=== PATIENT | female | born 1950 | race Caucasian/White ===

== ENCOUNTER 2018-04-04 19:50 | Inpatient (IN) | payer MEDICAID, OTHER ==
[~2018-04-04] VITALS: Ht 157.5 cm; Wt 46.8 kg
--- NOTE | 2018-04-04 20:07 | NUR ---
PT'S SON CALLED, HEIDI, CALLED AND CAN BE REACHED AT [phone]. PLEASE CALL WITH UPDATES
--- NOTE | 2018-04-04 20:12 | NUR ---
[id number] FROM [facility] C/O R WRIST PAIN/SWELLING/BRUSING SINCE LAST NIGHT S/P GLF. PER RA DENIES ANY HEAD TRAUMA/-LOC. HAS DIFFICULTY SUPPORTING WRIST. PT IS AOX2, VSS, RR EVEN AND UNLABORED. PAIN LEVEL 8/10. NO ACUTE DISTRESS NOTED. DENIES SOB, DIZZINESS, WEAKNESS, N/V. SKIN INTACT WITH SOME REDNESS IN GROIN AREA R/T ADULT DIAPER. READY FOR EVAL.
[2018-04-04] MEDS ORDERED: ACETAMINOPHEN 325 MG TABLET PO ONE (20:30)
[2018-04-04] MEDS ORDERED: ACETAMINOPHEN 325 MG TABLET ONE (20:39)
[2018-04-04 21:57] LABS: BASOPHILS % (AUTO) 0.3 % (0.0-2.0); EOSINOPHILS % (AUTO) 1.5 % (0.0-6.0); HEMATOCRIT 40 % (33-45); HEMOGLOBIN 13.2 g/dL (11.5-14.8); LYMPHOCYTES # (AUTO) 1.2 /CMM (0.8-4.8); LYMPHOCYTES % (AUTO) 15.3 % (20.0-44.0); MEAN CORPUSCULAR HGB CONC 33 g/dl (31.0-36.0); MEAN CORPUSCULAR VOLUME 96 fL (82-100); MONOCYTES # (AUTO) 0.7 /CMM (0.1-1.30); MONOCYTES % (AUTO) 9.1 % (2.0-12.0); NEUTROPHILS # (AUTO) 5.8 /CMM (1.8-8.9); NEUTROPHILS % (AUTO) 73.8 % (43.0-81.0); PLATELET COUNT (AUTO) 206 /CMM (150-450); RED BLOOD CELL COUNT(AUTO) 4.16 MIL/uL (4.0-5.2); WHITE BLOOD COUNT (AUTO) 7.9 K/uL (4.3-11.0)
--- NOTE | 2018-04-04 22:01 | NUR ---
Patient is resting comfortably in bed with eyes closed. Easily aroused. VSS
[2018-04-04 22:07] LABS: CALCIUM, SERUM 9.6 mg/dL (8.5-10.1); CREATININE 0.6 mg/dL (0.6-1.3); POTASSIUM 3.7 mmol/L (3.5-5.1)
[2018-04-04 22:13] LABS: ALBUMIN 3.7 g/dL (3.4-5.0); BILIRUBIN,DIRECT 0.1 mg/dL (0.0-0.2); BILIRUBIN,TOTAL 0.6 mg/dL (0.2-1.0); TOTAL PROTEIN, SERUM 6.7 g/dL (6.4-8.2)
[2018-04-04] MEDS ORDERED: TRAMADOL HCL 50 MG TABLET PO ONE (22:30)
[2018-04-04] MEDS ORDERED: TRAMADOL HCL 50 MG TABLET ONE (22:39)
--- NOTE | 2018-04-04 23:00 | NUR ---
report given to Rosio MORA for continuation of care.
--- NOTE | 2018-04-04 23:05 | NUR ---
[facility]
[2018-04-04 23:15] VITALS: BP 114/65
[2018-04-05] MEDS ORDERED: HYDROCODONE/APAP 5/325MG 1 EACH TABLET PO PRN
[2018-04-05] MEDS ORDERED: ACETAMINOPHEN 325 MG TABLET PO PRN
[2018-04-05] MEDS ORDERED: MAGNESIUM HYDROXIDE 30 ML UDC PO PRN
[2018-04-05] MEDS ORDERED: Z GUARD REMEDY 2 OZ OINT TP PRN
[2018-04-05] MEDS ORDERED: ONDANSETRON HCL/PF 4 MG/2 ML VIAL IVP PRN
[2018-04-05] MEDS ORDERED: ZOLPIDEM TARTRATE 5 MG TABLET PO PRN
[2018-04-05] MEDS ORDERED: CARB-93 PO (00:18)
[2018-04-05] MEDS ORDERED: ACYC400T PO (00:18)
[2018-04-05] MEDS ORDERED: LEVO25TA7 PO (00:18)
[2018-04-05] MEDS ORDERED: ROPI0.5T2 PO (00:18)
[2018-04-05] MEDS ORDERED: DULO60CA45 PO (00:18)
--- NOTE | 2018-04-05 00:30 | NUR ---
RESOURCE RN NOTES: PLACED ON ISOLATION PRECAUTION FOR POSSIBLE SCABIES
--- NOTE | 2018-04-05 00:36 | NUR ---
RESOURCE RN NOTES: ADMISSION DOCUMENTATION COMPLETED USING THE PAPER WORKS FROM [facility] NO VACCINATION HISTORY/DOCUMENTATION INCLUDED IN PAPER WORKS. UNABLE TO OBTAIN PERTINENT INFORMATION FROM PATIENT PT IS CONFUSED. HOME MED LIST TRANSCRIBED. ASSIGNED RN TO NOTIFY MD FOR MED RECON, ALSO MADE AWARE TO F/U WITH PATIENT'S VACCINATION HISTORY. ASSIGNED RN TO DO THE INITIAL PHYSICAL ASSESSMENT.
--- NOTE | 2018-04-05 01:15 | NUR ---
made cade velasco aware of patient possibily having scabies and to make rounds and check.
[2018-04-05] MEDS ORDERED: PERMETHRIN 5% CRM 60 GM TUBE TP ONE (02:00)
--- NOTE | 2018-04-05 02:00 | NUR ---
CREAM FOR SSCABIES APPLIED ORDERED TO STAY ON THE PATIENT 12 HOURS, WILL LET THE NEXT SHIFT AWARE
[2018-04-05] MEDS: IV NS 0.9% 1,000 ML IV PRN ×2 (02:32→19:44)
--- NOTE | 2018-04-05 05:39 | NUR ---
CLOSING NOTES: MS. REJI GAMEZ. RIGHT ARM WITH BIAS WRAP AND IN A SLING FROM ER. NOTED RED CLUSTERED RAISED RASH OVER HER BODY, PRINTING FILM STRIPPER CALATAN AWARE AND PERMETHRIN CRM ORDERED AND APPLIED TO ENTIRE BODY ORDERED. WILL INFORM DAY SHIFT TO WASH CLEAN AT 2 PM. INCONTINENT OF URINE. STG 2 ON COCCYX WOUND NURSE CONSULT ORDERED. RIGHT ARM ELEVATED ON PILLOWS TO KEEP THE RIGHT HAND FROM SWELLING. FINGERS ARE MOVEABLE AND CAPILLARY REFILL < 3 SECONDS. RIGHT HAND WARM TO TOUCH. SMILING AND COOPERATIVE. IV FOR HYDRATION STARTED. I CALLED [facility] TO SEE IF SHE HAD HER FLU SHOT OR PNA BUT WAS TOLD TO CALL BACK IN THE AM THE NUMBER IS [phone]. NEEDS MAX ASSIST WHEN BEING REPOSITIONED
[2018-04-05 07:11] LABS: BASOPHILS % (AUTO) 0.4 % (0.0-2.0); EOSINOPHILS % (AUTO) 3.6 % (0.0-6.0); HEMATOCRIT 40 % (33-45); LYMPHOCYTES # (AUTO) 1.2 /CMM (0.8-4.8); LYMPHOCYTES % (AUTO) 23.7 % (20.0-44.0); MEAN CORPUSCULAR HGB CONC 33 g/dl (31.0-36.0); MEAN CORPUSCULAR VOLUME 98 fL (82-100); MONOCYTES # (AUTO) 0.6 /CMM (0.1-1.30); NEUTROPHILS # (AUTO) 3.2 /CMM (1.8-8.9); NEUTROPHILS % (AUTO) 61.3 % (43.0-81.0); PLATELET COUNT (AUTO) 185 /CMM (150-450); RED BLOOD CELL COUNT(AUTO) 4.07 MIL/uL (4.0-5.2); WHITE BLOOD COUNT (AUTO) 5.2 K/uL (4.3-11.0)
[2018-04-05 07:19] LABS: CALCIUM, SERUM 8.9 mg/dL (8.5-10.1); CREATININE 0.5 mg/dL (0.6-1.3); MAGNESIUM 1.9 mg/dL (1.8-2.4); PHOSPHORUS 3.2 mg/dL (2.5-4.9); POTASSIUM 4.2 mmol/L (3.5-5.1)
[2018-04-05] MEDS ORDERED: MULT-24 PO (07:30)
[2018-04-05] MEDS ORDERED: RANI150T8 PO (07:30)
[2018-04-05] MEDS ORDERED: ALEN70TA6 PO (07:30)
[2018-04-05] MEDS ORDERED: VITA400C71 PO (07:30)
[2018-04-05] MEDS ORDERED: CALC500T52 PO (07:30)
[2018-04-05] MEDS ORDERED: ASCO500T9 PO (07:30)
[2018-04-05] MEDS ORDERED: DOCU-141 PO ×2 (07:30)
--- NOTE | 2018-04-05 07:30 | NUR ---
MS RN RECEIVED ON BED, AWAKE,W/ PERIODS OF CONFUSION, NOT IN ANY FORM OF DISTRESS, RESPIRATIONS EVEN AND UNLABORED,NO SOB NOTED, LUNGS ARE DIMINISHED, ABDOMEN SOFT,POSITIVE BOWEL SOUNDS,DENIES PAIN AT THIS ITME, ALL NEEDS ATTENDED.
[2018-04-05] MEDS ORDERED: ZINC220C8 PO (07:31)
--- NOTE | 2018-04-05 08:30 | NUR ---
MS RN BREAKFAST SERVED,TOLERATED WELL. WAITING FOR THE DOCTOR TO DO MED RECONCILIATION.
[2018-04-05 08:43] VITALS: BP 117/69
--- NOTE | 2018-04-05 10:00 | NUR ---
MS RN DUE MEDS GIVEN,TOLERATED WELL.
[2018-04-05] MEDS ORDERED: DOCUSATE SODIUM 100 MG CAPSULE PO PRN (11:00)
[2018-04-05 11:46] LABS: THYROID STIMULATING HORMONE 1.336 uIU/mL (0.358-3.74)
[2018-04-05] MEDS: ACYCLOVIR 200 MG CAPSULE PO SCH ×2 (13:45→17:25)
[2018-04-05] MEDS: VITAMIN E 400 UNIT CAPSULE PO SCH (13:46)
[2018-04-05] MEDS: CARBIDOPA/LEVODOPA 25/100 MG 1 UDTAB PO SCH ×3 (13:46→20:21)
[2018-04-05] MEDS: ropiniROLE 0.5 MG TABLET PO SCH ×2 (13:46→17:25)
[2018-04-05] MEDS: CALCIUM CARBONATE (1250) 500 MG TABLET PO SCH ×2 (13:46→17:25)
--- NOTE | 2018-04-05 14:30 | NUR ---
MS RN ELIMITE CREAM WASHED W/ BILL CLERK,ALL NEEDS ATTENDED, SON AT BEDSIDE.
[2018-04-05 16:15] VITALS: BP 99/62
--- NOTE | 2018-04-05 18:52 | NUR ---
MS RN ON BED, NO DISTRESS, ALL NEEDS ATTENDED.
--- NOTE | 2018-04-05 19:05 | NUR ---
RN MS OPENING NOTES RECEIVED PATIENT IN BED AWAKE ALERT AND ORIENTED X 1 NOTED CONFUSED , RESPIRATIONS EVEN AND UNLABORED WITH EQUAL RISE AND FALL OF CHEST, REMAINS COMFORTABLE, NO FACIAL GRIMACINF, GRUNTS OR MOANS PRESENT, PATIENT HAD RIGHT ARM SLING IN PLACE, IV SITE TO LEFT FA #20G INTACT AND PATENT, IVF RUNNING ORDERED. ON CONTACT PRECAUTIONS FOR SCABIES. FLUIDS, CLEANING AND REPOSITIONING OFFERED AND DONE, SAFETY PRECAUTIONS IN PLACE, LOW BED AND LOCKED, ALL NEEDS ATTENDED WILL CONTINUE TO MONITOR. REMAINS COMFORTABLE AT THIS TIME.
[2018-04-05 20:00] VITALS: BP_SYST 105; BP_SYST 108; BP_DIAS 53
[2018-04-05] MEDS: FAMOTIDINE (20 MG) 20 MG TABLET PO SCH (20:21)
[2018-04-05 21:21] VITALS: BP 108/53
--- NOTE | 2018-04-06 06:54 | NUR ---
RN MS CLOSING NOTES PATIENT IN BED AWAKE ALERT AND ORIENTED X 1 NOTED CONFUSED , RESPIRATIONS EVEN AND UNLABORED WITH EQUAL RISE AND FALL OF CHEST, REMAINS COMFORTABLE, NO FACIAL GRIMACING, GRUNTS OR MOANS PRESENT, PATIENT HAD RIGHT ARM SLING IN PLACE, IV SITE TO LEFT FA #20G INTACT AND PATENT, IVF RUNNING ORDERED. ON CONTACT PRECAUTIONS FOR SCABIES. FLUIDS, CLEANING AND REPOSITIONING OFFERED AND DONE, SAFETY PRECAUTIONS IN PLACE, LOW BED AND LOCKED, ALL NEEDS ATTENDED WILL CONTINUE TO MONITOR. REMAINS COMFORTABLE AT THIS TIME AND ENDORSE TO NEXT SHIFT.
[2018-04-06 07:23] LABS: CALCIUM, SERUM 8.8 mg/dL (8.5-10.1); CREATININE 0.5 mg/dL (0.6-1.3); POTASSIUM 3.8 mmol/L (3.5-5.1)
[2018-04-06 07:25] LABS: BASOPHILS % (AUTO) 0.4 % (0.0-2.0); HEMATOCRIT 39 % (33-45); HEMOGLOBIN 12.8 g/dL (11.5-14.8); LYMPHOCYTES # (AUTO) 0.9 /CMM (0.8-4.8); LYMPHOCYTES % (AUTO) 21.9 % (20.0-44.0); MEAN CORPUSCULAR HGB CONC 33 g/dl (31.0-36.0); MEAN CORPUSCULAR VOLUME 97 fL (82-100); MONOCYTES # (AUTO) 0.4 /CMM (0.1-1.30); NEUTROPHILS # (AUTO) 2.6 /CMM (1.8-8.9); NEUTROPHILS % (AUTO) 62.7 % (43.0-81.0); PLATELET COUNT (AUTO) 171 /CMM (150-450); WHITE BLOOD COUNT (AUTO) 4.1 K/uL (4.3-11.0)
[2018-04-06] MEDS ORDERED: LEVOTHYROXINE SODIUM 25 MCG TABLET PO SCH (07:30)
[2018-04-06 08:00] VITALS: BP 131/74
--- NOTE | 2018-04-06 08:00 | NUR ---
m/s program coordinator executive education: initial assessment received pt in bed awake, a/ox2. right sling in place with soft cast in place. no c/o pain or any discomfort. on isolation for scabies and maintained. instructed to call for assistance. will monitor.
[2018-04-06] MEDS ORDERED: ZINC SULFATE 220 MG CAPSULE PO SCH (09:00)
[2018-04-06] MEDS ORDERED: MULTIVITAMINS,THERAGRAN 1 UDTAB TABLET PO SCH (09:00)
[2018-04-06] MEDS ORDERED: ASCORBIC ACID 500 MG TABLET PO SCH (09:00)
[2018-04-06] MEDS ORDERED: DOCUSATE SODIUM 100 MG CAPSULE PO SCH (09:00)
[2018-04-06] MEDS ORDERED: DULOXETINE HCL 30 MG CAPSULE.DR PO SCH (09:00)
[2018-04-06] MEDS: FAMOTIDINE (20 MG) 20 MG TABLET PO SCH (09:18)
[2018-04-06] MEDS: CARBIDOPA/LEVODOPA 25/100 MG 1 UDTAB PO SCH ×2 (09:18→12:47)
[2018-04-06] MEDS: CALCIUM CARBONATE (1250) 500 MG TABLET PO SCH ×2 (09:18→12:48)
[2018-04-06] MEDS: ropiniROLE 0.5 MG TABLET PO SCH ×2 (09:18→12:48)
[2018-04-06] MEDS: VITAMIN E 400 UNIT CAPSULE PO SCH (09:20)
[2018-04-06] MEDS: IV NS 0.9% 1,000 ML IV PRN (09:31)
--- NOTE | 2018-04-06 09:42 | NUR ---
WOUND CARE CONSULT: PT PRESENTS WITH SACRAL SCARRING AND RASH TO BODY, PRESENT ON ADMISSION. PT NOT NOTED TO BE ITCHING AT THIS TIME. PER NURSING STAFF, PT WAS TREATED FOR SCABIES. RECOMMENDATIONS MADE FOR SKIN PROTECTION AND DISCUSSED WITH NURSING STAFF. PT ON JILL ISOFLEX LOW AIRLOSS BED. RT ARM SPLINT/ORTHO DRESSING IN PLACE. DEFER TO ORTHO FOR RT UPPER EXTREMITY. WILL SEE PRN. IN AGREEMENT WITH PLAN OF CARE.
[2018-04-06] MEDS: ACYCLOVIR 200 MG CAPSULE PO SCH (10:48)
[2018-04-06] MEDS ORDERED: HYDR-4354 PO (10:50)
--- NOTE | 2018-04-06 11:00 | NUR ---
m/s crystallography teacher: md visit seen and examined by dr. fisher (acnp) with order to d'c back to snf with discharge instructions <Okay to [facility] back to [facility] facility, Followup with orthopedic surgeon outpatient, Our orthopedist spoke to who fixed patient's right, forearm one year ago and he can see her in the office for followup, Continue home medications, Followup with primary provider and orthopedist within 3 days, >Wound location <SACRAL SCAR,POA> Instructions <PROTECT DAILY WITH MEPILEX AND OFFLOAD. keep sling at all times. order acknowledged. case management making arrangement.
--- NOTE | 2018-04-06 11:55 | NUR ---
m/s mechanical manufacturing engineer: jr lam (case management) called and informed me that pt is leaving at 1400 to go back assisted living. pt made aware, but unable to sign d'c papers due to cognitive impairment. will give d'c papers to [facility] assisted [facility]. place a call to neetu (son) [phone], but no answer, message left via voice mail.
--- NOTE | 2018-04-06 12:00 | NUR ---
m/s felt checker: notes per hospitalist (phillip), Scabies prophylaxis provided, no isolation is required for patient. carole (case management) notified assisted living and made aware.
--- NOTE | 2018-04-06 13:30 | NUR ---
m/s mulling machine operator: notes pt unable to sign all d'c papers due to cognitive impairment. 2 licensed staff signed all d'c papers. all belongings returned to pt. awaiting for ambulance. will continue to monitor.
--- NOTE | 2018-04-06 14:15 | NUR ---
m/s lime mixer tender: notes ambulance here and report given to one of the crew. h/l removed with tip intact with no swelling, no redness, and no bleeding noted. belongings and d'c papers surrendered to emt crew.
--- NOTE | 2018-04-06 14:30 | NUR ---
m/s deck scaler: discharged discharged back to [facility] (assisted living) in stable condition with all d'c papers and belongings via ambulance accompanied by 2 crew.
[2018-04-11] MEDS ORDERED: ALENDRONATE 70 MG TABLET PO SCH (11:00)
== END 2018-04-06 14:30 | disposition home health service (06) | DRG 342 ==
LOC: ER 19:55 → MED 22:49
PROVIDERS: ADMIT Nurse Practitioner Acute Care; ATTEND Nurse Practitioner Acute Care
DX: S52.501A Unspecified fracture of the lower end of right radius, initial encounter for closed fracture (principal); N17.9 Acute kidney failure, unspecified; G20 Parkinson's disease; F03.90 Unspecified dementia, unspecified severity, without behavioral disturbance, psychotic disturbance, mood disturbance, and anxiety; E44.1 Mild protein-calorie malnutrition; S52.601A Unspecified fracture of lower end of right ulna, initial encounter for closed fracture; W01.0XXA Fall on same level from slipping, tripping and stumbling without subsequent striking against object, initial encounter; Y92.099 Unspecified place in other non-institutional residence as the place of occurrence of the external cause; E03.9 Hypothyroidism, unspecified; Z68.1 Body mass index [BMI] 19.9 or less, adult; F32.9 Major depressive disorder, single episode, unspecified; B86 Scabies
CPT/HCPCS: 36415; 70450-TC; 71045-TC; 73090-TC; 73120-TC; 80048-TC; 80061-TC; 80076-TC; 83735-TC; 84100-TC; 84439-TC; 84443-TC; 84484-TC; 85025-TC; 85730-TC; 87081-TC; 93307-TC; G0378; J7030

== ENCOUNTER 2019-02-12 07:09 | Emergency (ER) | payer MEDICAID, OTHER ==
[~2019-02-12] VITALS: Ht 167.6 cm; Wt 58.5 kg
[~2019-02-12 07:09] MED LIST: ACYC400T PO; ALEN70TA6 PO; ASCO500T9 PO; CALC500T52 PO; CARB-93 PO; DOCU-141 PO; DULO60CA45 PO; HYDR-4354 PO; LEVO25TA7 PO; MULT-24 PO; RANI150T8 PO; ROPI0.5T2 PO; VITA400C71 PO; ZINC1CAP2 PO
--- NOTE | 2019-02-12 07:18 | NUR ---
[id number] FROM [facility] GL[facility] X 30MINS KALSOMINER, -LOC, LACERATION ON LT EYEBROW, TO ER BED 7, HOOKED TO MONITOR, CHANGED TO HOSP GOW, AWAITING MD DURÁN.
--- NOTE | 2019-02-12 07:34 | NUR ---
DR PANDEY AT BEDSIDE
[2019-02-12] MEDS ORDERED: ACETAMINOPHEN 325 MG TABLET ONE (07:46)
[2019-02-12] MEDS ORDERED: TDAP [DIPH/PERTUSSIS/TET] 0.5 ML VIAL IM ONE ×2 (07:47→08:00)
[2019-02-12] MEDS ORDERED: ACETAMINOPHEN 325 MG TABLET PO ONE (08:00)
--- NOTE | 2019-02-12 09:22 | NUR ---
PATIENT IN BED AWAKE, HOOKED TO MONITOR, VSS. KEPT WARM AND COMFORTABLE.
--- NOTE | 2019-02-12 11:26 | NUR ---
PATIENT IN BED ASLEEP, EASILY AROUSABLE BY VOICE. HOOKED TO MONITOR, VSS. KEPT WARM AND COMFORTABLE.
[2019-02-12] MEDS ORDERED: LIDOCAINE 1%-EPI 1:100,000 20 ML VIAL ONE ×2 (12:26→12:35)
[2019-02-12] MEDS ORDERED: LET SOLN TOPICAL 8 ML UDC TP ONE ×2 (12:27→12:30)
[2019-02-12] MEDS ORDERED: LIDOCAINE 1%-EPI 1:100,000 20 ML VIAL TP ONE (12:30)
--- NOTE | 2019-02-12 14:34 | NUR ---
report given to royal adam roe
--- NOTE | 2019-02-12 14:36 | NUR ---
CALLED TRANSPORT ETA [phone] IS PER RISHABH TRIP # [id number]
--- NOTE | 2019-02-12 16:28 | NUR ---
Patient is resting comfortably in bed with eyes closed. Easily aroused. VSS
--- NOTE | 2019-02-12 17:27 | NUR ---
REPORT GIVEN TO EMS. PT TRANSPORTED INSTABLE [facility]DITINO
[2019-02-12 17:38] VITALS: BP 128/81
== END 2019-02-12 17:38 ==
LOC: ER 07:13
DX: S02.32XA Fracture of orbital floor, left side, initial encounter for closed fracture (principal); S02.40DA Maxillary fracture, left side, initial encounter for closed fracture; S01.112A Laceration without foreign body of left eyelid and periocular area, initial encounter; G20 Parkinson's disease; F02.80 Dementia in other diseases classified elsewhere, unspecified severity, without behavioral disturbance, psychotic disturbance, mood disturbance, and anxiety; F32.9 Major depressive disorder, single episode, unspecified; Z98.890 Other specified postprocedural states; Z79.899 Other long term (current) drug therapy; W18.39XA Other fall on same level, initial encounter; Y93.89 Activity, other specified; Y92.89 Other specified places as the place of occurrence of the external cause; Y99.8 Other external cause status
CPT/HCPCS: 12011; 70450; 70486; 72125; 82962; 90471; 90715; 99284; J3490